=== PATIENT | female | born 1955 | race Caucasian/White ===

== ENCOUNTER → 2018-10-31 | Outpatient (CLI) | payer OTHER ==
--- NOTE | 2018-10-31 16:26 | CT ---
Procedure: CT LUNG SCREENING Exam Date: 10/31/2018. Ordering Provider: Chad Marie Clinical Indication: PERSONAL HISTORY OF TOBACCO USE smokes 1 pack every 3 days. 22 years. This patient meets eligibility criteria for low-dose CT lung cancer screening. Comparison: None. Technique: Using a multislice scanner, sequential helical axial imaging was obtained in the thorax, 2.5 mm thickness, 2.5 mm separation, from the level of the thoracic inlet through the lung bases without IV contrast. A low dose protocol was utilized for BMI less than 30: BMI: 20.3. CTDI: 1.76 mGy. 120. kVp. 45 mA. DLP 64.71 mGy centimeters. 2D sagittal and coronal reconstructed images, 6.0 mm thickness, were obtained. This exam was performed according to our departmental dose optimization program which includes use of automated exposure control, adjustment of the mA and/or kV according to patient size and/or use of iterative reconstruction technique. Nodule measurements under 10 mm are given as mean value of 3 axes diameters. FINDINGS: Lungs and large airways: Bilateral increased lung volumes. Bilateral small parenchymal blebs in a centrilobular pattern more prevalent in the upper lobes. Scattered groundglass densities bilaterally. Pleural parenchymal scarring in the right lower lobe. No abnormal nodules, no focal masses or focal infiltrates bilaterally. Pleura and space: No pleural thickening, effusion, calcification, or pneumothorax. Mediastinum and young: evaluation limited by low dose technique and lack of IV contrast. No significantly enlarged nodes are soft tissue masses. Heart and great vessels: Arthroscopic calcification proximal brachiocephalic vessels, thoracic aorta, and coronary arteries. Chest wall, lower neck, axillae: Evaluation also limited by same factors as described above. No enlarged lymph nodes or soft tissue masses. Upper abdomen: The included peritoneal space demonstrates no free air or fluid and stranding. Atherosclerotic calcification of the abdominal aorta. Spleen and adrenal glands. Osseous structures: Evaluation limited by low dose MIP technique. Also spondylosis of the thoracic spine. No lytic or blastic lesions. IMPRESSION: 1. Emphysematous changes in the lungs more prevalent in the upper lung cerda. No abnormal nodules, no masses or infiltrates. [facility] Best Practice recommendations:. Please see below for Lung RADS category and FOLLOW-UP.* *Lung RADS category Category 1 - No nodule or definitely benign nodules (probability of malignancy less than 1%). Follow-up: Continue annual screening with Low Dose Chest CT in 12 months. Electronically signed by: Hermelindo Lipscomb MD 10/31/2018 4:23 PM CDT
--- NOTE | 2018-11-01 16:07 | MAM ---
EXAM DESCRIPTION: 3D Screening BILATERAL : Digital Mammography. CLINICAL HISTORY: 63 years Female ANNUAL SCREENING . No complaints. No personal or family history of breast cancer. Childbirth. Premenopausal. No HRT. Lifetime risk of developing breast cancer (Tyrer-Cuzick model)(%): 5.3. COMPARISON: Bilateral screening 2-D digital mammography 06/04/2009. TECHNIQUE: Bilateral CC and MLO projection full-field images, digital tomosynthesis mammographic technique. Bilateral digital 2-D full-field MLO images. CAD not available for tomosynthesis or 2-D images. FINDINGS: The breast parenchymal density pattern is: Almost entirely fatty. No skin thickening or nipple retraction. Right axillary lymph nodes. Small solitary microcalcifications bilaterally. No new focal, stellate mass or density, focal asymmetry , and no suspicious microcalcifications bilaterally Stable mammograms compared to prior study. Taking into account, differences in mammographic technique. IMPRESSION: Benign exam. BIRAD CATEGORY: 2 BENIGN FINDINGS. RECOMMENDATIONS: FOLLOW UP: Routine digital bilateral mammographic screening, one year interval from October 2018. Written communication explaining the IMPRESSION and follow-up, will be mailed to the patient and referring health care provider. According to the [employer], yearly mammograms are recommended starting at age 40 and continuing as long as a woman is in good health. Any breast change noted on a breast self-exam should be reported promptly to the patient's healthcare provider. Breast MRI is recommended for women with an approximately 20-25% or greater lifetime risk of breast cancer, including women with a strong family history of breast or ovarian cancer and women who have been treated for Hodgkin's disease. A negative mammographic report should not delay tissue diagnosis in patients with significant clinical history or physical findings. Extremely dense breast tissue limits the sensitivity of digital mammography. Electronically signed by: Hermelindo Lipscomb MD 11/01/2018 4:04 PM CDT
== END ==
LOC: MAMMO 11:30
PROVIDERS: ATTEND Family Medicine
DX: Z12.31 Encounter for screening mammogram for malignant neoplasm of breast (principal); J43.9 Emphysema, unspecified; Z87.891 Personal history of nicotine dependence
CPT/HCPCS: 77063; 77067; G0297

== ENCOUNTER 2020-04-14 23:52 | Emergency (ER) | payer OTHER ==
[2020-04-15 00:11] VITALS: TEMP 97.7
[2020-04-15] MEDS ORDERED: ALBUTEROL SULFATE 2.5 MG/3 ML VIAL NEB ONE ×2 (00:18→00:19)
[2020-04-15] MEDS ORDERED: predniSONE 20 MG TAB PO ONE (00:19)
--- NOTE | 2020-04-15 00:32 | RAD ---
EXAM DESCRIPTION: XR Chest, 1 View CLINICAL HISTORY: 64 years Female SOB, cough TECHNIQUE: One of the chest. COMPARISON: 03/31/2020 FINDINGS: The lungs are clear without focal consolidation, effusion, or pneumothorax. The cardiomediastinal silhouette and central pulmonary vasculature are normal. No acute osseous abnormalities. IMPRESSION: No acute cardiopulmonary abnormalities. Electronically signed by: Yesenia Jo MD 04/15/2020 12:30 AM CDT
[2020-04-15 01:05] VITALS: BP 128/66; O2SAT 94
--- NOTE | 2020-04-15 01:15 | ED.PDOC ---
History of Present Illness - General Chief Complaint: Asthma Stated Complaint: asthma exac, no O2 home Time Seen by Provider: 04/15/20 01:13 Source: patient, RN notes reviewed, Vital Signs reviewed, family Exam Limitations: no limitations - History of Present Illness Initial Comments: Patient is a 62-year-old white female who presents with complaints of shortness of breath. Patient has a history of COPD and chronic bronchitis. Recently started on home O2. Her oxygen bottle was empty this evening. Her oxygen concentrator was at her daughter's house. Patient complains of cough, intermittently productive for clear sputum. Patient continues to smoke quarter pack of cigarettes a day. This shortness of breath started acutely this evening a few hours prior to arrival. She took a couple of puffs on her inhaler at home without improvement. On the ambulance ride and she improved with the DuoNeb. Timing/Duration: 4-6 hours Severity: moderate Activities at Onset: none Possible Cause: chronic episodes, allergen exposure - Cigarettes, other - Patient attributes this to the hot steam from her tub. Improving Factors: medication - Albuterol Worsening Factors: other - Hot steam from the tub Respiratory Risk Factors: other - Cigarettes Allergies/Adverse Reactions: Allergies Codeine Allergy (Verified 04/15/20 00:12) Home Medications: Ambulatory Orders Albuterol Inhaler [Ventolin Hfa Inhaler] 1 puff INH PRN PRN 10/17/15 Fluticasone/Salmeterol 250/50 [Advair Diskus] 0 mcg INH BID 10/17/15 Prednisone [Deltasone] 20 mg PO DAILY #10 tab 10/17/15 Tiotropium Demorest Monohydrate [Spiriva Handihaler] 18 mcg IN DAILY 10/17/15 Zolpidem Tartrate [Ambien] 10 mg PO BEDTIME 10/17/15 Benzonatate Perles [Tessalon Perles] 100 mg PO TID 15 Days cap 03/31/20 guaiFENesin W/CODEINE LIQ [Robitussin AC] 5 ml PO Q6HR 7 Days ud 03/31/20 predniSONE 60 mg PO DAILY #37 tab 04/15/20 Review of Systems - Review of Systems Constitutional: States: no symptoms reported, see HPI. Denies: chills, fever, malaise, weakness EENTM: States: no symptoms reported. Denies: eye pain, blurred vision, double vision Respiratory: States: see HPI, cough, short of breath, wheezing Cardiology: States: no symptoms reported. Denies: chest pain, palpitations, syncope Gastrointestinal/Abdominal: States: no symptoms reported. Denies: abdominal pain, nausea, vomiting Genitourinary: States: no symptoms reported Musculoskeletal: States: no symptoms reported. Denies: back pain, neck pain Skin: States: no symptoms reported. Denies: change in color, rash Neurological: States: no symptoms reported. Denies: tingling, tremors, weakness Endocrine: States: no symptoms reported Hematologic/Lymphatic: States: no symptoms reported All other Systems: No Change from Baseline Past Medical History (General) - Patient Medical History Hx Seizures: No Hx Stroke: No Hx Dementia: No Hx Asthma: Yes - and emphysemia Hx of COPD: Yes - early onset per PCP Hx Cardiac Disorders: No Hx Congestive Heart Failure: No Hx Pacemaker: No Hx Hypertension: No Hx Thyroid Disease: No Hx Diabetes: No Hx Gastroesophageal Reflux: No Hx Renal Disease: Yes - "one was damaged doesn't know if they removed it or not" Hx Cancer: No Hx of HIV: No Hx Hepatitis C: No Hx MRSA: No Surgical History: appendectomy - Vaccination History Hx Tetanus, Diphtheria Vaccination: Yes Hx Influenza Vaccination: Yes Hx Pneumococcal Vaccination: Yes - Social History Hx Tobacco Use: Yes Hx Alcohol Use: No - Female History Patient : No - hysterectomy Family Medical History - Family History Mother Family History: Unknown Living Status: Unknown Physical Exam - Physical Exam General Appearance: Alert, Anxious, Obvious distress, Well Developed, Well Groomed, Well Hydrated, Well Nourished Eyes, Ears, Nose, Throat Exam: PERRL/EOMI, normal ENT inspection, pharynx normal Neck: non-tender, full range of motion, supple, normal inspection Respiratory: chest non-tender, respiratory distress - Moderate, decreased breath sounds - Increased expiratory phase consistent with COPD, accessory muscle use - Supraclavicular, rhonchi - Diffusely, wheezing - Occasionally and expiratory. 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 I doubt pneumonia or COVID is no fever. Patient's symptoms markedly improved after another breathing treatment and steroids. Plan on discharge home with extended course of the steroid taper. I discussed this plan of care with the patient she voices understanding and agreement. Patient will be going to her daughter's house to sweet pickle maker her oxygen concentrator. Arnel Curran M.D. #[id number] Departure - Departure Clinical Impression: COPD exacerbation, Hypoxemia, Dyspnea Time of Disposition: 01:19 Disposition: Discharge to Home or Self Care Condition: Fair Departure Forms: ED Discharge - Pt. Copy, Patient Portal Self Enrollment Instructions: DI for Asthma -- Adult, Exacerbation of COPD (DC) Referrals: Chad Marie MD [Primary Care Provider] - 1-5 Days Prescriptions: predniSONE 60 mg PO DAILY #37 tab Home Medications: Ambulatory Orders Albuterol Inhaler [Ventolin Hfa Inhaler] 1 puff INH PRN PRN 10/17/15 Fluticasone/Salmeterol 250/50 [Advair Diskus] 0 mcg INH BID 10/17/15 Prednisone [Deltasone] 20 mg PO DAILY #10 tab 10/17/15 Tiotropium Demorest Monohydrate [Spiriva Handihaler] 18 mcg IN DAILY 10/17/15 Zolpidem Tartrate [Ambien] 10 mg PO BEDTIME 10/17/15 Benzonatate Perles [Tessalon Perles] 100 mg PO TID 15 Days cap 03/31/20 guaiFENesin W/CODEINE LIQ [Robitussin AC] 5 ml PO Q6HR 7 Days ud 03/31/20 predniSONE 60 mg PO DAILY #37 tab 04/15/20
== END 2020-04-15 01:28 | disposition home or self-care (01) ==
LOC: ER 23:52
DX: J44.1 Chronic obstructive pulmonary disease with (acute) exacerbation (principal); R09.02 Hypoxemia; R06.03 Acute respiratory distress; F17.210 Nicotine dependence, cigarettes, uncomplicated; Z79.899 Other long term (current) drug therapy; Z88.5 Allergy status to narcotic agent; Z99.81 Dependence on supplemental oxygen
CPT/HCPCS: 71045; 94640; J7512; J7611

== ENCOUNTER → 2020-05-01 | Outpatient (CLI) | payer OTHER ==
--- NOTE | 2020-05-02 07:58 | RAD ---
EXAM DESCRIPTION: Pelvis (accession [id number]), Knee,Left Complete (accession [id number]) CLINICAL HISTORY: 64 years, Female, HIP PAIN LEFT COMPARISON: None TECHNIQUE: 4 x-ray views of the left knee standing Single frontal x-ray view of the pelvis and hips. FINDINGS: LEFT KNEE No fracture or dislocation. Bones appear normally mineralized with normal trabecular pattern. Normal appearance of medial and lateral compartments on frontal view. Lateral view shows normal position of the patella. No patellar spurring or enthesopathy. No suprapatellar knee joint effusion. Normal contour of quadriceps and patellar tendons. No abnormal patellar tilt or subluxation on patellar sunrise view. Ossific structure behind the patella may be part of the tibia. Slightly oblique view with 45 degrees flexion standing shows intact tibial plateau and proximal fibula. PELVIS Frontal view shows no hip dislocation or fracture. Mild spurring of the lateral acetabular margins. Degenerative changes at the pubic symphysis and SI joints. No fracture or lytic lesion of the bony pelvis. Ossific density in the left groin region could be phlebolith. IMPRESSION: Negative for fracture or dislocation of the left knee. Negative for fracture or lytic lesion of the pelvis. Electronically signed by: Leonel Montgomery MD 05/02/2020 7:57 AM CDT
--- NOTE | 2020-05-02 07:59 | RAD ---
EXAM DESCRIPTION: Pelvis (accession [id number]), Knee,Left Complete (accession [id number]) CLINICAL HISTORY: 64 years, Female, HIP PAIN LEFT COMPARISON: None TECHNIQUE: 4 x-ray views of the left knee standing Single frontal x-ray view of the pelvis and hips. FINDINGS: LEFT KNEE No fracture or dislocation. Bones appear normally mineralized with normal trabecular pattern. Normal appearance of medial and lateral compartments on frontal view. Lateral view shows normal position of the patella. No patellar spurring or enthesopathy. No suprapatellar knee joint effusion. Normal contour of quadriceps and patellar tendons. No abnormal patellar tilt or subluxation on patellar sunrise view. Ossific structure behind the patella may be part of the tibia. Slightly oblique view with 45 degrees flexion standing shows intact tibial plateau and proximal fibula. PELVIS Frontal view shows no hip dislocation or fracture. Mild spurring of the lateral acetabular margins. Degenerative changes at the pubic symphysis and SI joints. No fracture or lytic lesion of the bony pelvis. Ossific density in the left groin region could be phlebolith. IMPRESSION: Negative for fracture or dislocation of the left knee. Negative for fracture or lytic lesion of the pelvis. Electronically signed by: Leonel Montgomery MD 05/02/2020 7:57 AM CDT
== END ==
LOC: RAD 09:27
PROVIDERS: ATTEND Orthopaedic Surgery
DX: M25.552 Pain in left hip (principal); M25.562 Pain in left knee